=== PATIENT | male | born 2000 | race Caucasian/White ===

== ENCOUNTER 2024-12-13 11:24 | Outpatient (CLI) | payer OTHER, SELFPAY ==
--- NOTE | ~2024-12-13 | MR_ITS ---
EXAMINATION: MR knee LT wo con DATE: 12/13/2024 12:09 INDICATION: Generalized left knee pain and instability post twisting injury at the [facility]. TECHNIQUE: Magnetic resonance imaging (MRI) of the left knee was performed without intravenous contra st. Sequences included coronal PD-weighted FSE, coronal PD-weighted FS FSE, sagittal T2-weighted FSE , sagittal PD-weighted FS FSE and axial PD weighted fat saturated FSE. COMPARISON: None. FINDINGS: Medial compartment: Medial meniscus is normal. Articular cartilage is normal. Lateral compartment: Lateral meniscus is normal. Articular cartilage is normal. Patellofemoral compartment: Articular cartilage is normal. Ligaments and tendons: Complete complete tear of the anterior cruciate ligament sprain one third the distance from the femor al to the tibial attachments. The posterior cruciate ligament is normal. The medial collateral ligame nt and fibular collateral ligament complex are normal. The extensor mechanism is normal. The visualiz ed medial and lateral hamstring tendons as well as the iliotibial band are normal. Fluid: Moderate-sized left knee joint effusion. No loose osteochondral bodies identified. Osseous/other: Increased fluid signal without evident fracture line consistent with bone contusions at the lateral s ulcus of the lateral femoral condyle and along the posterior margin of the lateral tibial plateau. Ad ditional marrow edema surrounding a nondisplaced rectosigmoid intensity subarticular fracture line un derlying the posterior 25% of the medial tibial plateau without evident interruption of the articular cortex. IMPRESSION: 1. Complete anterior cruciate ligament tear. 2. Nondisplaced subarticular impaction fracture at the posterior aspect of the medial tibial plateau and corresponding bone contusions at the lateral sulcus of the lateral femoral condyle and along the posterior margin of the lateral tibial plateau with pattern consistent with anterior tibial subluxati on injury occurring in conjunction with the anterior cruciate ligament tear. Reviewed, dictated and finalized at location A. IMPRESSION: 1. Complete anterior cruciate ligament tear. 2. Nondisplaced subarticular impaction fracture at the posterior aspect of the medial tibial plateau and corresponding bone contusions at the lateral sulcus o f the lateral femoral condyle and along the posterior margin of the lateral tib ial plateau with pattern consistent with anterior tibial subluxation injury occ urring in conjunction with the anterior cruciate ligament tear.
== END 2024-12-13 11:25 | disposition home or self-care (01) ==
PROVIDERS: PCP Orthopaedic Surgery; Visit Provider Orthopaedic Surgery
DX: S83.512A Sprain of anterior cruciate ligament of left knee, initial encounter (principal); X58.XXXA Exposure to other specified factors, initial encounter
CPT/HCPCS: 73721